=== PATIENT | female | born 1975 | race Caucasian/White ===

== ENCOUNTER 2025-03-25 09:35 | Observation (INO) | payer BC ==
[2025-03-25] MEDS ORDERED: HYDRALAZINE HCL 20 MG/ML VIAL ONE (10:09)
[2025-03-25 10:31] LABS: Absolute Basophils 0.1 K/uL (0-0.5); Absolute Eosinophils 0.1 K/uL (0-0.5); Absolute Lymphocytes (CBC) 1.3 K/uL (0.7-4.9); Absolute Monocytes 0.5 K/uL (0.1-1.3); Absolute Neutrophil 3.9 K/uL (1.8-8.0); Eosinophils % 1.4 % (0-4.4); Hemoglobin 12.3 g/dL (12.0-15.0); Lymphocytes % 22.4 % (15.3-44.8); MCHC 34.3 g/dL (32.0-36.0); MCV 87.7 fL (80-100); MPV 7.5 fL (7.6-11.3); Neutrophils % 67.2 % (41.7-73.7); Nucleated RBC Absolute Count 0.1 (0-0); Nucleated Red Blood Cells % 0.9 % (0-0); Platelets 267 thou/uL (152-406); Red Cell Distribution Width 13.9 % (12.1-15.2)
--- NOTE | 2025-03-25 10:34 | RAD REPORT ---
EXAMINATION: ONE VIEW CHEST XR CLINICAL INDICATION: CHEST PAIN TECHNIQUE: Frontal chest projection is submitted. Examination is limited by patient positioning and t echnique. COMPARISON: No prior exam. FINDINGS: Interstitial markings are mildly prominent. No focal infiltrate is seen. The heart is upper limit of normal in size. No displaced fractures identified.
[2025-03-25 10:35] LABS: Protime INR 1.15
[2025-03-25 11:07] LABS: Albumin 3.5 g/dL (3.4-5.0); Albumin/Globulin Ratio 0.9 (1.1-1.8); Anion Gap 9.9 mEq/L (5.0-15.0); Bilirubin Direct 0.2 mg/dL (0-0.2); Bilirubin Indirect, Calculated 0.4 mg/dL (0.2-0.8); Bilirubin Total 0.6 mg/dL (0.2-1.0); Globulin 4.1 g/dL (2.3-3.5); Potassium 2.9 mEq/L (3.5-5.1); Protein, Total 7.6 g/dL (6.4-8.2); Troponin High Sensitivity 7.1 pg/mL (<58.9)
[2025-03-25 11:09] LABS: Thyroid Stimulating Hormone 85.2 uIU/mL (0.358-3.740)
--- NOTE | 2025-03-25 11:25 | ER ---
Nurse's Notes [facility] Name: Raina Reina Age: 50 yrs Sex: Female : 1975 Arrival Date: 03/25/2025 Time: 09:35 Bed 8 Private MD: Diagnosis: Chest pain, unspecified;Dyspnea, unspecified;Hypothyroidism, unspecified Presentation: 03/25 09:55 Chief complaint: Patient states: Left side CP x 1 week, out of HTN meds and thyroid jl7 meds x 2 months. Coronavirus screen: At this time, the client does not indicate any symptoms associated with coronavirus-19. Ebola Screen: No symptoms or risks identified at this time. Initial Sepsis Screen: Does the patient meet any 2 criteria? No. Patient's initial sepsis screen is negative. Does the patient have a suspected source of infection? No. Patient's initial sepsis screen is negative. Risk Assessment: Do you want to hurt yourself or someone else? Patient reports no desire to harm self or others. Onset of symptoms is unknown. 09:55 Method Of Arrival: Ambulatory [facility] 09:55 Acuity: ANSELMO 2 jl7 Triage Assessment: 09:57 General: Appears in no apparent distress. uncomfortable, Behavior is calm, cooperative, jl7 appropriate for age. Pain: Complains of pain in anterior aspect of left upper chest Pain currently is 3 out of 10 on a pain scale. Cardiovascular: Patient's skin is warm and dry. Historical: - Allergies: 09:57 Phenergan; jl7 09:57 Reglan; jl7 - PMHx: 09:57 Hypercholesterolemia; Hypertensive disorder; Hypothyroidism; jl7 - Immunization history:: Adult Immunizations up to date. - Infectious Disease History:: Denies. - Family history:: not pertinent. - Hospitalizations: : No recent hospitalization is reported. - Social history:: Smoking status: Patient denies any tobacco usage or history of. Screenin:41 [facility] ED Fall Risk Assessment (Adult) History of falling in the last 3 months, hb including since admission No falls in past 3 months (0 pts) Confusion or Disorientation No (0 pts) Intoxicated or Sedated No (0 pts) Impaired Gait No (0 pts) Mobility Assist Device Used No (0 pt) Altered Elimination No (0 pt) Score/Fall Risk Level 0 - 2 = Low Risk Oriented to surroundings, Maintained a safe environment, Educated pt \T\ family on fall prevention, incl call for assistance when getting out of bed. Abuse screen: Denies threats or abuse. Denies injuries from another. Nutritional screening: No deficits noted. Tuberculosis screening: No symptoms or risk factors identified. Assessment: 10:40 General: Appears in no apparent distress. Behavior is calm, cooperative. Pain: Pain hb currently is 3 out of 10 on a pain scale. Neuro: Level of Consciousness is awake, alert, obeys commands, Oriented to person, place, time, situation. Cardiovascular: Patient's skin is warm and dry. Respiratory: Respiratory effort is even, unlabored, Respiratory pattern is regular, symmetrical. GI: No signs and/or symptoms were reported involving the gastrointestinal system. : No signs and/or symptoms were reported regarding the genitourinary system. EENT: No signs and/or symptoms were reported regarding the EENT system. Derm: Skin is pink, warm \T\ dry. Musculoskeletal: No signs and/or symptoms reported regarding the musculoskeletal system. 11:49 Reassessment: Patient appears in no apparent distress at this time. Patient and/or hb family updated on plan of care and expected duration. Pain level reassessed. Patient is alert, oriented x 3, equal unlabored respirations, skin warm/dry/pink. 13:00 Reassessment: Patient appears in no apparent distress at this time. Patient is alert, bp oriented x 3, equal unlabored respirations, skin warm/dry/pink. 15:00 Reassessment: REPORT FAXED FOR RM 212. bp Vital Signs: 09:55 BP 183 / 108; Pulse 80; Resp 17; Pulse Ox 100% ; Weight 63.5 kg; Height 5 ft. 0 in. ; jl7 Pain 3/10; 10:15 BP 142 / 95; Pulse 78; Resp 15; Pulse Ox 99% on R/A; hb 11:50 BP 147 / 96; Pulse 60; Resp 16; Pulse Ox 99% ; hb 13:30 BP 143 / 101; Pulse 58; Resp 27; Pulse Ox 100% ; bp 15:30 BP 157 / 102; Pulse 66; Resp 16; Pulse Ox 100% ; bp 09:55 Body Mass Index 27.34 (63.50 kg, 152.4 cm) [facility] 09:55 Pain Scale: Adult jl7 ED Course: 09:38 Patient arrived in ED. im 09:44 Jer Montero MD is Attending Physician. rn 09:57 Triage completed. jl7 09:57 Arm band placed on right wrist. EKG completed in triage. Results shown to MD. jl7 10:03 Asa Mills, RN is Primary Nurse. bp 10:15 Patient has correct armband on for positive identification. Call light in reach. hb Provided Education on: tests, result times. 10:15 Client placed on continuous cardiac and pulse oximetry monitoring. NIBP monitoring hb applied. telemetry monitor on. Pulse ox on. NIBP on. 10:19 Initial lab(s) drawn, by me, sent to lab. hb 10:21 XRAY Chest (1 view) In Process Unspecified. EDMS 11:24 Wu Mohan MD is Hospitalizing Provider. rn 12:02 Inserted saline lock: 22 gauge in left antecubital area, using aseptic technique. bp Flushed with 10 mL NS. 13:00 No provider procedures requiring assistance completed. Patient admitted, IV remains in bp place. Administered Medications: 12:02 Drug: Aspirin PO Chewable Tablet 324 mg PO once; 81 mg tablets x 4 Route: PO; bp 15:46 Follow up: Response: No adverse reaction bp 12:03 Not Given (Physician Discretion): hydralazine5 mg IVP once bp 12:15 Drug: Potassium Chloride IV 20 mEq IV at calculated rate once; administer over 1-2 bp hours Route: IV; Rate: calculated rate; Site: left antecubital; 15:46 Follow up: IV Status: Completed infusion bp 12:15 Drug: Potassium PO Effervescent Tablet 50 mEq PO once; dissolve in 4 ounces of water or bp juice Route: PO; 15:46 Follow up: Response: No adverse reaction bp 15:03 Not Given (MED UNAVAILABLE): [id number] mcg PO once bp Medication: 10:41 VIS not applicable for this client. Outcome: 11:24 Decision to Hospitalize by Provider. rn 13:00 Admitted to Med/surg accompanied by nurse, via wheelchair, room 212, with oxygen, bp 13:00 Condition: stable 13:00 Instructed on the need for admit, 16:16 Patient left the ED. bp Signatures: Dispatcher [employer] EDMS Jer Montero MD MD rn Baxter, Heather, RN RN hb Leal, Jahala, RN RN jl7 Asa Mills RN RN bp Cyndi Novak Corrections: (The following items were deleted from the chart) 10:40 10:00 BP 142 / 95; Pulse 78bpm; Resp 15bpm; Pulse Ox 99% RA; hb hb
--- NOTE | 2025-03-25 11:25 | EDPHYS ---
Physician Documentation [facility] Name: Raina Reina Age: 50 yrs Sex: Female : 1975 Arrival Date: 03/25/2025 Time: 09:35 Bed 8 Private MD: ED Physician Jer Montero HPI: 03/25 10:20 This 50 yrs old Female presents to ER via Ambulatory with complaints of Chest Pain. rn 10:20 The patient or guardian reports chest pain that is located primarily in the anterior rn chest wall, left. Onset: 1 week(s) ago. The pain does not radiate. Associated signs and symptoms: Pertinent positives: shortness of breath, Pertinent negatives: cough, diaphoresis. The chest pain is described as a heaviness, a pressure. Duration: The patient or guardian reports multiple episodes, that are intermittent. Modifying factors: The symptoms are alleviated by nothing. the symptoms are aggravated by nothing. Severity of pain: At its worst the pain was mild in the emergency department the pain is unchanged. Patient reports 1 week of intermittent left-sided chest pain, nonradiating, associated with shortness of breath but no diaphoresis or nausea. Patient reports has been out of her blood pressure and thyroid medication for at least 2 months. Used to take losartan. Patient reports chest pain is intermittent and lasts approximately 5 minutes or so with each episode.. Historical: - Allergies: 09:57 Phenergan; jl7 09:57 Reglan; jl7 - PMHx: 09:57 Hypercholesterolemia; Hypertensive disorder; Hypothyroidism; jl7 - Immunization history:: Adult Immunizations up to date. - Infectious Disease History:: Denies. - Family history:: not pertinent. - Hospitalizations: : No recent hospitalization is reported. - Social history:: Smoking status: Patient denies any tobacco usage or history of. ROS: 10:20 Constitutional: Negative for fever, chills, and weight loss, Neck: Negative for injury, rn pain, and swelling, Cardiovascular: Negative for palpitations, and edema, Respiratory: Negative for shortness of breath, cough, wheezing, and pleuritic chest pain, Abdomen/GI: Negative for abdominal pain, vomiting, diarrhea, and constipation, MS/Extremity: Negative for injury and deformity, Skin: Negative for injury, rash, and discoloration, Neuro: Negative for headache, weakness, numbness, tingling, and seizure, Exam: 10:20 Constitutional: This is a well developed, well nourished patient who is awake, alert, rn and in no acute distress. Cardiovascular: Regular rate and rhythm. No pulse deficits. Respiratory: No increased work of breathing, no retractions or nasal flaring. Abdomen/GI: Soft, non-tender MS/ Extremity: Pulses equal, no cyanosis. Neuro: Awake and alert, GCS 15, oriented to person, place, time, and situation. Cranial nerves II-XII grossly intact. Motor strength 5/5 in all extremities. Sensory grossly intact. Cerebellar exam normal. 11:03 ECG was reviewed by the Attending Physician. rn Vital Signs: 09:55 BP 183 / 108; Pulse 80; Resp 17; Pulse Ox 100% ; Weight 63.5 kg; Height 5 ft. 0 in. ; jl7 Pain 3/10; 10:15 BP 142 / 95; Pulse 78; Resp 15; Pulse Ox 99% on R/A; hb 11:50 BP 147 / 96; Pulse 60; Resp 16; Pulse Ox 99% ; hb 13:30 BP 143 / 101; Pulse 58; Resp 27; Pulse Ox 100% ; bp 15:30 BP 157 / 102; Pulse 66; Resp 16; Pulse Ox 100% ; bp 09:55 Body Mass Index 27.34 (63.50 kg, 152.4 cm) jl7 09:55 Pain Scale: Adult jl7 MDM: 09:44 Medical Screening Exam initiated rn 11:22 Differential diagnosis: acute myocardial infarction, acute pericarditis, anxiety, rn coronary artery disease chest wall pain, costochondritis, gastritis, peptic ulcer disease, pericarditis, pleurisy, pneumonia, pneumothorax, stable angina. HEART Score: History: Moderately Suspicious (1), ECG: Non specific repolarization disturbance / LBTB / PM (1), Age: > 45 and < 65 years (1), Risk Factors: 1 or 2 risk factors (1), Troponin: < or = 1 x Normal Limit (0), Total Score = 4. The patient was given aspirin in the Emergency Department. Data reviewed: vital signs, nurses notes, lab test result(s), EKG, radiologic studies, plain films, and as a result, I will admit patient. Consideration of Admission/Observation Patient was admitted/placed on observation. Escalation of care including admission/observation considered. Counseling: I had a detailed discussion with the patient and/or guardian regarding the historical points, exam findings, and any diagnostic results supporting the discharge/admit diagnosis, lab results, radiology results, the need for further work-up and treatment in the hospital. Response to treatment: the patient's symptoms have mildly improved after treatment, and as a result, I will admit patient. 03/25 09:56 Order name: Basic Metabolic Panel; Complete Time: 11:10 rn 03/25 09:56 Order name: CBC with Diff; Complete Time: 10:43 rn 03/25 09:56 Order name: LFT's; Complete Time: 11: rn 03/25 09:56 Order name: NT PRO-BNP; Complete Time: 11: rn 03/25 09:56 Order name: PT-INR; Complete Time: 10:43 rn 03/25 09:56 Order name: Troponin HS; Complete Time: 11:10 rn 03/25 09:56 Order name: TSH; Complete Time: 11: rn 03/25 09:56 Order name: T4 Free; Complete Time: 11: rn 03/25 11:42 Order name: Basic Metabolic Panel EDMS 05/05 11:42 Order name: Basic Metabolic Panel EDMS 05/05 11:42 Order name: Basic Metabolic Panel EDMS 05/05 11:42 Order name: Basic Metabolic Panel EDMS 05/05 11:42 Order name: CBC with Automated Diff EDMS 05/05 11:42 Order name: CBC with Automated Diff EDMS 05/05 11:42 Order name: CBC with Automated Diff EDMS 05/05 11:42 Order name: CBC with Automated Diff EDMS 05/05 11:42 Order name: Lipid Profile EDMS 05/05 11:42 Order name: Lipid Profile EDMS 05/05 11:42 Order name: Troponin High Sensitivity EDMS 05/05 11:42 Order name: Troponin High Sensitivity EDMS 05/05 11:42 Order name: Troponin High Sensitivity EDMS 05/05 09:56 Order name: XRAY Chest (1 view); Complete Time: 10:43 rn 03/25 09:56 Order name: EKG; Complete Time: 09:57 rn 03/25 09:56 Order name: Cardiac monitoring; Complete Time: 10:10 rn 03/25 09:56 Order name: EKG - Nurse/Tech; Complete Time: 10:10 rn 03/25 09:56 Order name: IV Saline Lock; Complete Time: 12:04 rn 03/25 09:56 Order name: Labs collected and sent; Complete Time: 10:19 rn 03/25 09:56 Order name: O2 Per Protocol; Complete Time: 10:10 rn 03/25 09:56 Order name: O2 Sat Monitoring; Complete Time: 10:10 rn EC:03 Rate is 71 beats/min. Rhythm is regular. QRS [facility] is Normal. UT interval is normal. QRS rn interval is normal. QT interval is normal. No Q waves. T waves are Normal. No ST changes noted. Clinical impression: Normal ECG. Interpreted by me. Reviewed by me. Administered Medications: 12:02 Drug: Aspirin PO Chewable Tablet 324 mg PO once; 81 mg tablets x 4 Route: PO; bp 15:46 Follow up: Response: No adverse reaction bp 12:03 Not Given (Physician Discretion): hydralazine5 mg IVP once bp 12:15 Drug: Potassium Chloride IV 20 mEq IV at calculated rate once; administer over 1-2 bp hours Route: IV; Rate: calculated rate; Site: left antecubital; 15:46 Follow up: IV Status: Completed infusion bp 12:15 Drug: Potassium PO Effervescent Tablet 50 mEq PO once; dissolve in 4 ounces of water or bp juice Route: PO; 15:46 Follow up: Response: No adverse reaction bp 15:03 Not Given (MED UNAVAILABLE): [id number] mcg PO once bp Disposition Summary: 03/25/25 11:24 Hospitalization Ordered Notes: Hospitalization Status: Observation rn Provider: Wu Mohan rn Location: Telemetry/MedSurg (observation) rn Condition: Stable rn Problem: an ongoing problem rn Symptoms: have improved rn Bed/Room Type: Standard rn Room Assignment: 212(03/25/25 13:43) bd Diagnosis - Chest pain, unspecified rn - Dyspnea, unspecified rn - Hypothyroidism, unspecified rn Forms: - Medication Reconciliation Form rn - SBAR form rn - Leadership Thank You Letter rn Signatures: Dispatcher [employer] EDJanice Patel Roman, MD MD rn Attema, Lee, MARY-C [id number] Sheila Clay RN RN Nini Hernandez RN RN jl7 Asa Mills, ANN MARIE RN bp Corrections: (The following items were deleted from the chart) 13:43 11:24 rn marky
[2025-03-25] MEDS ORDERED: ONDANSETRON 4 MG/2 ML VIAL IV PRN (11:38)
[2025-03-25] MEDS ORDERED: ACETAMINOPHEN 325 MG TABLET PO PRN (11:38)
[2025-03-25] MEDS ORDERED: MORPHINE 2 MG/ML SYR IV PRN (11:38)
--- NOTE | 2025-03-25 11:44 | P.HP ---
Certification for Inpatient Patient admitted to: Observation With expected LOS: <2 Midnights Patient will require the following post-hospital care: None Practitioner: I am a practitioner with admitting privileges, knowledge of patient current condition, hospital course, and medical plan of care. Services: Services provided to patient in accordance with Admission requirements found in Title 42 Section 412.3 of the Code of Federal Regulations <CourtneyMicah Dan - Last Filed: 03/25/25 11:42> Patient History Date of Service: 03/25/25 Reason for admission: Chest pain History of Present Illness: 50-year-old female with history of hypertension, hyperlipidemia, hypothyroidism who is not on any medications for a couple years now presents to the emergency department chief complaint of chest pain. She reports left-sided pressure-like chest pain for around 1 week now with associated shortness of breath. She denies ever previously having a stress test or heart catheterization, does report that her mother and father had heart disease. She is evaluated in the emergency department initial high sensitive troponin was normal at 7.1, BNP of 204 potassium was 2.9 TSH is 85.2 and free T4 was 0.25. She was given a dose of levothyroxine in the ED as well as aspirin. She will need to be admitted to the hospital for ACS rule out. - Past Medical/Surgical History -: Hypertension -: Hyperlipidemia -: Hypothyroidism -: Hysterectomy Psychosocial/ Personal History: Lives at home - Family History Father -: Heart disease Mother -: Heart disease - Social History Smoking Status: Former smoker Alcohol use: No CD- Drugs: No Caffeine use: Yes Place of Residence: Home <Micah Valdez - Last Filed: 03/25/25 11:42> Date of Service: 03/25/25 <Wu Mohan - Last Filed: 03/26/25 07:56> Review of Systems 10-point ROS is otherwise unremarkable Respiratory: Shortness of Breath Cardiovascular: Chest Pain <Micah Valdez - Last Filed: 03/25/25 11:42> Physical Examination - Physical Exam General: Alert, In no apparent distress, Oriented x3 HEENT: Atraumatic, PERRLA Neck: Supple, 2+ carotid pulse no bruit, No LAD Respiratory: Clear to auscultation bilaterally, Normal air movement Cardiovascular: Regular rate/rhythm, Normal S1 S2 Gastrointestinal: Normal bowel sounds, No tenderness Musculoskeletal: No tenderness Integumentary: No rashes Neurological: Normal speech Lymphatics: No axilla or inguinal lymphadenopathy - Studies Laboratory Data (last 24 hrs) 03/25/25 03/25/25 03/25/25 10:20 10:20 10:20 WBC 5.70 Hgb 12.3 Hct 36.0 Plt Count 267 PT 13.0 INR 1.15 Sodium 139 Potassium 2.9 L BUN 17 Creatinine 1.03 H Glucose 105 Total Bilirubin 0.6 AST 60 H ALT 119 H Alkaline Phosphatase 79 <Micah Valdez - Last Filed: 03/25/25 11:42> - Studies Laboratory Data (last 24 hrs) 03/25/25 03/25/25 03/25/25 10:20 10:20 10:20 WBC 5.70 Hgb 12.3 Hct 36.0 Plt Count 267 PT 13.0 INR 1.15 Sodium 139 Potassium 2.9 L BUN 17 Creatinine 1.03 H Glucose 105 Total Bilirubin 0.6 AST 60 H ALT 119 H Alkaline Phosphatase 79 <Wu Mohan - Last Filed: 03/26/25 07:56> Assessment and Plan - Plan Assessment: Chest pain rule out ACS Hypertension Hyperlipidemia Hypothyroidism Plan: Chest pain rule out ACS Trend troponins and monitor on telemetry Cardiology consultation Continue aspirin, statin Initiate beta-blockermetoprolol 25 mg twice daily Hypertension Hyperlipidemia Hypothyroidism Has not been on medications for around 2 years now Starting levothyroxine 100 mcg daily, metoprolol titrate 25 mg twice daily, atorvastatin 40 mg at bedtime DVT PPX: Lovenox Code status: Full code Discharge Plan: Home Plan to discharge in: 24 Hours - Advance Directives Does patient have a Living Will: No Does patient have a Durable POA for Healthcare: No - Code Status/Comfort Care Code Status Assessed: Yes (Full code) Critical Care: No Time Spent Managing Pts Care (In Minutes): 64 <Micah Valdez - Last Filed: 03/25/25 11:42> Date of Service: 03/25/25 Chart has been reviewed. Events of the last 24 hours have been noted. Case discussed with BALBIR. I performed a substantial part of the MDM during this patient's care today. I personally made or approved the documented management plan and acknowledge its risk of complications. I agree with the findings and documentation provided in the BALBIR's notes Patient will have cardiac workup including stress test and echocardiogram with cardiology consultation. If her workup is negative she also will need to get mammograms as she has a family history and she appears to have very dense breast tissue. Her pain is reproducible as well. Have advised her to follow-up with mammogram and we will get anti-inflammatories if her cardiac workup is negative. Continue with current plan of care at this time. <Wu Mohan - Last Filed: 03/26/25 07:56>
[2025-03-25] MEDS ORDERED: ASPIRIN 81 MG CHEWABLE TABLET ONE (11:46)
[2025-03-25] MEDS ORDERED: KCL 20 MEQ/100 mL IVPB 100 ML IV ONE (13:20)
[2025-03-25] MEDS ORDERED: NA CHLORIDE 0.9% 250 ML ONE (13:20)
[2025-03-25] MEDS ORDERED: POTASSIUM 25 MEQ EFFERV TAB ONE (13:20)
[2025-03-25 14:24] VITALS: BMI 27.3
[2025-03-25] MEDS: ATORVASTATIN 40 MG TAB PO SCH (20:02)
[2025-03-25 20:44] LABS: Potassium 3.3 mEq/L (3.5-5.1); Troponin High Sensitivity 6.9 pg/mL (<58.9)
[2025-03-25] MEDS: POTASSIUM CL SA 10 MEQ TAB PO ONE (21:56)
[2025-03-26 04:39] VITALS: O2SAT 95
[2025-03-26 05:58] LABS: Absolute Eosinophils 0.2 K/uL (0-0.5); Absolute Lymphocytes (CBC) 1.6 K/uL (0.7-4.9); Absolute Monocytes 0.4 K/uL (0.1-1.3); Basophils % 0.2 % (0-1.3); Eosinophils % 3.3 % (0-4.4); Hematocrit 37.5 % (36.0-45.0); Hemoglobin 12.9 g/dL (12.0-15.0); Lymphocytes % 31.6 % (15.3-44.8); MCH 30.4 pg (27.0-35.0); MCHC 34.4 g/dL (32.0-36.0); MCV 88.5 fL (80-100); MPV 7.5 fL (7.6-11.3); Monocytes % 7.3 % (3.3-12.3); Neutrophils % 57.6 % (41.7-73.7); Nucleated Red Blood Cells % 0.1 % (0-0); Platelets 204 thou/uL (152-406); RBC Red Blood Cell Count 4.23 M/uL (3.86-4.86); Red Cell Distribution Width 14.2 % (12.1-15.2)
[2025-03-26 06:21] LABS: Anion Gap 7.9 mEq/L (5.0-15.0); Potassium 3.9 mEq/L (3.5-5.1); Troponin High Sensitivity 5.8 pg/mL (<58.9)
[2025-03-26 08:58] VITALS: TEMP 98.3
[2025-03-26] MEDS: ASPIRIN EC 81 MG TAB PO SCH (09:00)
[2025-03-26] MEDS ORDERED: REGADENOSON 0.4 MG/5 ML SYR IV ONE (10:08)
--- NOTE | 2025-03-26 10:52 | RAD REPORT ---
EXAM: Nuclear medicine cardiac perfusion examination with ejection fraction HISTORY: Chest pain CHEST PAIN TECHNIQUE: Rest images: 10.8 mCi technetium 99m sestamibi Stress images: 29.9 mCi of technetium 99m sestamibi COMPARISON: None. FINDINGS: Tomographic images: No fixed or reversible perfusion defects. No finding to suspect hibernating myocardium. Ejection fraction of 83%. EDV: 38 mL ESV: 7 mL LHR: 0.25 TID: 1.02 IMPRESSION: No evidence of stress induced ischemia.
[2025-03-26] MEDS: LEVOTHYROXINE SOD 0.1 MG TAB PO SCH (10:56)
[2025-03-26] MEDS: POTASSIUM CL SA 10 MEQ TAB PO ONE (10:56)
[2025-03-26 13:04] VITALS: BP 143/99
--- NOTE | 2025-03-26 14:01 | TREADPHA ---
DX: CHEST PAIN Date of Study: 03/26/2025 Ht: 5' 0 " Wt: 140 lb 0 oz Consulting Physician: VALERIE MEDICATIONS: ASPIRIN, LIPITOR, SYNTHROID, MORPHINE, ZOFRAN, KLOR-CON HISTORY: 50 YEAR OLD FEMALE WITH COMPLAINTS OF CHEST PAIN. HISTORY OF HYPERTENSION AND HYPOTHYROID. PHYSICIAL EXAMINATION: RESTING B.P.: 153/92 RESTING H.R.: 65 RESTING EKG: SINUS RHYTHM. PROTOCOL: LEXISCAN EXERCISE TIME: 3:30 B.P. AT PEAK STRESS: 146/91 IMPRESSION: LEXISCAN INJECTED. CARDIOLITE INJECTED PER PROTOCOL. SEE NUCLEAR MEDICINE REPORT. NO CHEST PAIN. NO VENTRICULAR OR SUPRAVENTRICULAR TACHYCARDIA. NO ARRYTHMIAS NOTED. PATIENT COMPLAINTS OF NAUSEA. CAFFINE PROVIDED.
--- NOTE | 2025-03-26 14:42 | P.DS ---
Admission Date: 03/25/25 Discharge Date: 03/26/25 Reason for Admission: Chest pain Brief History of Present Illness: Diagnosis Chest pain ruled out ACS Hypertension Hyperlipidemia Hypothyroidism HPI 03/25/25 50-year-old female with history of hypertension, hyperlipidemia, hypothyroidism who is not on any medications for a couple years now presents to the emergency department chief complaint of chest pain. She reports left-sided pressure-like chest pain for around 1 week now with associated shortness of breath. She denies ever previously having a stress test or heart catheterization, does report that her mother and father had heart disease. She is evaluated in the emergency department initial high sensitive troponin was normal at 7.1, BNP of 204 potassium was 2.9 TSH is 85.2 and free T4 was 0.25. She was given a dose of levothyroxine in the ED as well as aspirin. She will need to be admitted to the hospital for ACS rule out. Hospital Course: Chest pain rule out ACS Trend troponins-negative monitor on telemetry Cardiology consulted, stress test with no ischemia noted, cleared for disharge prescribed aspirin, statin, beta-blockermetoprolol 25 mg twice daily Hypertension Hyperlipidemia Hypothyroidism Has not been on medications for around 2 years now, provided information for drug cost reduction. prescribed levothyroxine 100 mcg daily, metoprolol titrate 25 mg twice daily, atorvastatin 40 mg at bedtime On 03/26/25, Raina was seen on morning rounds hemodynamically stable. She denies left sided chest pressure and pain overnight. Dr. Cazares ordered/reviewed the stress test and has cleared her for discharge with a follow up appointment in one week. Aspirin, lipitor, metoprolol, and synthroid prescribed. Physical Exam General: Alert and Oriented x3, NAD Neck: Supple, 2+ carotid pulse no bruit, No LAD Respiratory: Clear BBS, On RA Cardiovascular: RRR, Normal S1 S2 Gastrointestinal: Normal bowel sounds, soft on palpation Musculoskeletal: No tenderness Integumentary: No rashes Neurological: Normal speech <Alyce Zhang - Last Filed: 03/26/25 16:11> Admission Date: 03/25/25 Discharge Date: 03/26/25 <Susana Kenney - Last Filed: 03/26/25 17:40> Disposition: ROUTINE DISCHARGE Discharge Condition: GOOD Vital Signs/Physical Exam: Temp Pulse Resp BP Pulse Ox 98.3 F 70 18 143/99 H 98 03/26/25 12:00 03/26/25 12:00 03/26/25 12:00 03/26/25 12:00 03/26/25 12:00 Laboratory Data at Discharge: WBC 5.20 thou/uL (4.3-10.9) 03/26/25 05:52 Hgb 12.9 g/dL (12.0-15.0) 03/26/25 05:52 Hct 37.5 % (36.0-45.0) 03/26/25 05:52 Plt Count 204 thou/uL (152-406) 03/26/25 05:52 PT 13.0 SECONDS (10-13.0) 03/25/25 10:20 INR 1.15 03/25/25 10:20 Sodium 137 mEq/L (136-145) 03/26/25 05:52 Potassium 3.9 mEq/L (3.5-5.1) D 03/26/25 05:52 BUN 11 mg/dL (7-18) 03/26/25 05:52 Creatinine 0.87 mg/dL (0.55-1.02) 03/26/25 05:52 Glucose 92 mg/dL (74-106) 03/26/25 05:52 Total Bilirubin 0.6 mg/dL (0.2-1.0) 03/25/25 10:20 AST 60 U/L (15-37) H 03/25/25 10:20 ALT 119 U/L (13-56) H 03/25/25 10:20 Alkaline Phosphatase 79 U/L (45-117) 03/25/25 10:20 Triglycerides 164 mg/dL (<150) H 03/26/25 05:52 Cholesterol 245 mg/dL (<200) H 03/26/25 05:52 HDL Cholesterol 74 mg/dL (40-60) H 03/26/25 05:52 Cholesterol/HDL Ratio 3.31 03/26/25 05:52 <Alyce Zhang - Last Filed: 03/26/25 16:11> Vital Signs/Physical Exam: Temp Pulse Resp BP Pulse Ox 98.3 F 70 18 143/99 H 98 03/26/25 12:00 03/26/25 12:00 03/26/25 12:00 03/26/25 12:00 03/26/25 12:00 Laboratory Data at Discharge: WBC 5.20 thou/uL (4.3-10.9) 03/26/25 05:52 Hgb 12.9 g/dL (12.0-15.0) 03/26/25 05:52 Hct 37.5 % (36.0-45.0) 03/26/25 05:52 Plt Count 204 thou/uL (152-406) 03/26/25 05:52 PT 13.0 SECONDS (10-13.0) 03/25/25 10:20 INR 1.15 03/25/25 10:20 Sodium 137 mEq/L (136-145) 03/26/25 05:52 Potassium 3.9 mEq/L (3.5-5.1) D 03/26/25 05:52 BUN 11 mg/dL (7-18) 03/26/25 05:52 Creatinine 0.87 mg/dL (0.55-1.02) 03/26/25 05:52 Glucose 92 mg/dL (74-106) 03/26/25 05:52 Total Bilirubin 0.6 mg/dL (0.2-1.0) 03/25/25 10:20 AST 60 U/L (15-37) H 03/25/25 10:20 ALT 119 U/L (13-56) H 03/25/25 10:20 Alkaline Phosphatase 79 U/L (45-117) 03/25/25 10:20 Triglycerides 164 mg/dL (<150) H 03/26/25 05:52 Cholesterol 245 mg/dL (<200) H 03/26/25 05:52 HDL Cholesterol 74 mg/dL (40-60) H 03/26/25 05:52 Cholesterol/HDL Ratio 3.31 03/26/25 05:52 <Susana Kenney - Last Filed: 03/26/25 17:40> Diet: AHA Activity: Ad mitali <Alyce Zhang - Last Filed: 03/26/25 16:11> Physician Review: Patient Assessed, Agree with Above Assessment and Plan <Susana Kenney - Last Filed: 03/26/25 17:40> Home Medications: Buspirone HCl [Buspar] 30 mg PO DAILY 03/25/25 Fluticasone [Flonase 50MCG Nasal Cogswell*] 1 spray ANTOLIN PRN PRN 03/25/25 Losartan Potassium 25 mg PO DAILY 03/25/25 Prazosin HCl 1 mg PO DAILY 03/25/25 Sertraline [Zoloft*] 100 mg PO DAILY 03/25/25 Trazodone [Desyrel*] 100 mg PO BEDTIME 03/25/25 hydrOXYzine HCL [Atarax*] 25 mg PO BID 03/25/25 Aspirin [Aspirin EC 81 MG] 81 mg PO DAILY 30 Days #30 tab 03/26/25 Atorvastatin Calcium [Lipitor] 40 mg PO BEDTIME 30 Days #30 tab 03/26/25 Levothyroxine [Synthroid*] 0.1 mg PO DAILYAC 30 Days #30 tab 03/26/25 Metoprolol Tartrate 25 mg PO BID 30 Days #60 tab 03/26/25 New Medications: Aspirin [Aspirin EC 81 MG] 81 mg PO DAILY 30 Days #30 tab Atorvastatin Calcium [Lipitor] 40 mg PO BEDTIME 30 Days #30 tab Metoprolol Tartrate 25 mg PO BID 30 Days #60 tab Levothyroxine [Synthroid*] 0.1 mg PO DAILYAC 30 Days #30 tab Followup: Remy Cazares MD [ACTIVE - CAN ADMIT] - NONE,NONE [Primary Care Provider] -
--- NOTE | 2025-03-27 10:21 | ECHO ---
HEIGHT: 5 ft 0 in WEIGHT: 140 lb 0 oz DATE OF STUDY: 03/26/[address]: Micah Valdez NP 2-DIMENSIONAL: YES M.MODE: YES DOPPLER: YES COLOR FLOW: YES TDS: PORTABLE: YES DEFINITY: BUBBLE STUDY: DIAGNOSIS: CHEST PAIN CARDIAC HISTORY: CATHERIZATION: NO SURGERY: NO PROSTHETIC VALVE: NO PACEMAKER: NO MEASUREMENTS (cm) DIASTOLIC (NORMALS) SYSTOLIC (NORMALS) IVSd 1.3 (0.6-1.2) LA Diam 2.4 (1.9-4.0) LVEF 60-65% LVIDd 2.8 (3.5-5.7) LVIDs 1.8 (2.0-3.5) %FS 37% LVPWd 1.4 (0.6-1.2) Ao Diam 2.6 (2.0-3.7) 2 DIMENSIONAL ASSESSMENT: RIGHT ATRIUM: NORMAL LEFT ATRIUM: NORMAL RIGHT VENTRICLE: NORMAL LEFT VENTRICLE: MILD LEFT VENTRICULAR HYPERTROPHY TRICUSPID VALVE: NORMAL MITRAL VALVE: NORMAL PULMONIC VALVE: NORMAL AORTIC VALVE: NORMAL PERICARDIAL EFFUSION: NONE AORTIC ROOT: NORMAL LEFT VENTRICULAR WALL MOTION: NORMAL DOPPLER/COLOR FLOW: NORMAL COMMENTS: 1. NORMAL LEFT VENTRICULAR SYSTOLIC FUNCTION, EJECTION FRACTION 60-65%, NORMAL WALL MOTION 2. NORMAL DIASTOLIC FUNCTION 3. MILD LEFT VENTRICULAR HYPERTENSION TECHNOLOGIST: WILMAN MELENDEZ
--- NOTE | 2025-03-28 11:55 | EKG ---
Test Date: 2025-03-25 Test Time: 09:52:51 Contract Officer: FARZANA MEASUREMENT RESULTS: Intervals: Rate: 71 MO: 130 QRSD: 84 QT: 412 QTc: 447 Gregory: P: 32 MO: 130 QRS: 62 T: 54 INTERPRETIVE STATEMENTS: Normal sinus rhythm Normal ECG No previous ECG available for comparison Electronically Signed On 03-28-25 11:47:44 CDT by Remy Cazares
== END 2025-03-26 16:10 | disposition home or self-care (01) ==
LOC: ER 09:35 → ERHOLD 11:38 → 2ND 14:59
PROVIDERS: ADMIT Hospitalist; ATTEND Family Medicine
DX: R07.9 Chest pain, unspecified (principal); R06.00 Dyspnea, unspecified; I10 Essential (primary) hypertension; E78.5 Hyperlipidemia, unspecified
CPT/HCPCS: 96365; 93005; 93017; 93306; 85025 ×2; 80048 ×2; 36415; 84132; 85610; 80061; 80076; 84443; 84484 ×3; 84439; 83880; 71045; 78452; 99285; 96366; J3480; J2785; J0360; J7050; A9500; G0378 ×3